=== PATIENT | female | born 1990 ===

== ENCOUNTER 2020-02-19 06:00 | Outpatient (RCR) | payer OTHER, SELFPAY | END 2020-02-23 23:59 | disposition home or self-care (01) | LOC: MOT 06:00 | PROVIDERS: Referring Provider Physician Assistant; Visit Provider Physician Assistant | DX: Z48.817 Encounter for surgical aftercare following surgery on the skin and subcutaneous tissue (principal) | CPT/HCPCS: 97022; 97035; 97110; 97140; 97166; 97760 ==

== ENCOUNTER 2020-02-24 06:00 | Outpatient (RCR) | payer OTHER, SELFPAY | END 2020-03-25 23:59 | disposition home or self-care (01) | LOC: MOT 06:00 | PROVIDERS: Referring Provider Physician Assistant; Visit Provider Physician Assistant | DX: Z48.817 Encounter for surgical aftercare following surgery on the skin and subcutaneous tissue (principal) | CPT/HCPCS: 97110 ==